=== PATIENT | female | born 1960 | race Asian ===

== ENCOUNTER 2024-02-17 06:09 | Day surgery (SDC) | payer BC, SELFPAY ==
[2024-02-03 13:12] VITALS: BMI 33.8
[2024-02-17] VITALS (11 sets, daily range): BP systolic 109–146; BP diastolic 52–88; BMI 33.8
[2024-02-17 07:14] LABS: Glucose - Point of Care 115 mg/dl (70-99)
[2024-02-17] MEDS: NORMOSOL-R 1000 IV (07:16)
[2024-02-17] MEDS: TYLENOL 1000 MG PO (07:16)
--- NOTE | 2024-02-17 09:22 | W.SUR.PREOP ---
Pre-Operative Surgical Note
-
I have examined this patient prior to the performance of the scheduled procedure.
The patient's condition is unchanged from the time of the current History and
Physical and the patient is able to undergo the scheduled procedure.
--- NOTE | 2024-02-17 09:22 | W.IMMPOSTOP ---
Surgical Immed Post Op Note
-
Primary Surgeon: Lucius Nunes MD
Assisting Surgeon: None
Pre-op Diagnosis: Biliary colic
Post-op Diagnosis: Chronic cholecystitis
Procedure Performed: Laparoscopic cholecystectomy and cholangiogram
Anesthesia Type: General
Specimen / Cultures: Gallbladder and contents
Estimated Blood Loss: 7 cc
Complications: None
Operative Findings: Chronically inflamed gallbladder with overlying omental adhesions and significant edema in the cystic triangle. The gallbladder was also fairly oddly shaped with a fairly narrow and decompressed fundus but of very bulbous
distended infundibulum. In addition, the cystic duct was quite tortuous. Critical view of safety obtained prior to ligation of the artery and attempted intraoperative cholangiogram. Due to the dilation and tortuosity of the cystic duct, we were
unable to successfully get a cholangiogram due to the leaking around the catheter. There was some spillage of black biliary sludge from her duct anatomy but this was all suctioned up.
--- NOTE | 2024-02-17 09:27 | OR.RPT ---
Operative Report
Operative Report
Patient Name: Zaria Perdue
: 1960
Date of Operation: 02/17/2024
Preoperative Diagnosis: Symptomatic Cholelithiasis
Postoperative Diagnosis: Chronic cholecystitis
Procedure(s):
Laparoscopic Cholecystectomy with Cholangiogram
Surgeon(s):
Dr. Nunes
It Program Manager(s):
Anesthesia: General
Estimated Blood Loss: 7 cc
Urine Output: None
Drains/Lines/Implants: None
Specimens:
1. Gallbladder and contents
HPI/Surgical Indications:
This is a 63year old female who presents with abdominal pain. Exam, labs and imaging are consistent with symptomatic cholelithiasis. Risks/Benefits/Alternatives were discussed at length, and the patient agreed to proceed with surgery.
Operative Findings: Chronically inflamed gallbladder with overlying omental adhesions and significant edema in the cystic triangle. The gallbladder was also fairly oddly shaped with a fairly narrow and decompressed fundus but of very bulbous
distended infundibulum. In addition, the cystic duct was quite tortuous. Critical view of safety obtained prior to ligation of the artery and attempted intraoperative cholangiogram. Due to the dilation and tortuosity of the cystic duct, we were
unable to successfully get a cholangiogram due to the leaking around the catheter. There was some spillage of black biliary sludge from her duct anatomy but this was all suctioned up.
Procedure Description:
The patient was brought to the Operating Room and placed in the supine position. IV antibiotics were infused and sequential compression devices were confirmed to be on. Following uneventful induction of general endotracheal anesthesia, an
orogastric tube was placed. The abdomen was prepped and draped in the usual sterile fashion. The abdomen was entered using a a left subcostal Veress needle which required 1 pass followed by a right upper quadrant 5 mm Optiview trocar.
Pneumoperitoneum to 15 mmHg pressure was obtained without difficulty and we confirmed that no injury had occurred during our entry. The patient was positioned in reverse trendelenberg and rotated with the right side up slightly. Two 5mm trocars were
then placed along the right subcostal margin, and a 12 mm port in the epigastrium. A locking grasping forceps was placed on the fundus of the gallbladder where it was then retracted cephalad and to the right. Using appropriate grasping instruments,
the omentum overlying the anterior surface of the gallbladder was carefully dissected off of the gallbladder. The duodenum was also plastered over the infundibulum, this was bluntly dissected off of the triangle of Calot. The peritoneum overlying
the triangle of Calot was incised. The cystic duct/gallbladder junction was identified, dissected circumferentially. The infundibulum of the gallbladder appeared quite bulbous, especially in comparison to fairly diminutive fundus. The cystic duct
was quite dilated and tortuous. The cystic artery was identified medially and was dissected circumferentially. A critical view was obtained. The cystic artery was clipped and divided to allow better exposure of the duct. The duct was dissected
proximally until we could visualize the common hepatic/common bile duct. A clip was then placed on the cystic duct/gallbladder junction, however as this was so dilated we used alligator clamp to prevent leakage from the gallbladder through our
ductotomy. There was some spillage of biliary sludge through our ductotomy which was immediately suctioned up. An intraoperative cholangiogram was attempted however due to the dilation of the duct and tortuosity, it was difficult to cannulate and
we were unable to get a good run without significant spillage of dye, so the cholangiogram was abandoned. The catheter was removed and the cystic duct was ligated with a 5 mm clip followed by a 0 PDS Endoloop. The remaining soft tissue attachments
of the gallbladder to the liver bed were then divided using electrocautery. There was no spillage of bile or stones. The gallbladder bed was inspected and excellent hemostasis was obtained. The gallbladder was extracted through the 12 mm trocar
site using an endocatch bag. The port site had to be enlarged slightly to remove the specimen. The abdomen was again irrigated and excellent hemostasis was assured. The 12 mm trocar site was closed using a figure of 8 of 0 PDS using a Quan
Ramírez device. All remaining trocars were then removed and the pneumoperitoneum was evacuated. All trocar sites were closed at the skin level using 4-0 Monocryl followed by Dermabond. Overall, the patient tolerated the procedure well and was
taken to the Recovery Room postoperatively in stable condition.
I was the attending physician and performed the procedure with no assistance. I was present for all portions of the case
Lucius Nunes MD
[2024-02-17 09:42] LABS: Glucose - Point of Care 193 mg/dl (70-99)
[2024-02-17 11:35] LABS: Glucose - Point of Care 183 mg/dl (70-99)
== END 2024-02-17 12:45 | disposition home or self-care (01) ==
LOC: SDS 06:09
PROVIDERS: ATTENDING PHYSICIAN Surgery; FAMILY PHYSICIAN Family Medicine
DX: K80.10 Calculus of gallbladder with chronic cholecystitis without obstruction (principal); K80.64 Calculus of gallbladder and bile duct with chronic cholecystitis without obstruction
CPT/HCPCS: 47563; 88304; 36415; 76000; 82962; 93005; A4300